=== PATIENT | female | born 1945 | race Hispanic/Latino ===

== ENCOUNTER 2022-03-03 19:54 | Emergency (ER) | payer MEDICARE, OTHER ==
[~2022-03-03] VITALS: Ht 162.6 cm; Wt 80.3 kg
[2022-03-03] MEDS ORDERED: IBUPROFEN 400 MG TAB PO ONE (20:15)
[2022-03-03] MEDS ORDERED: IBUPROFEN400 MG PO (21:09)
== END 2022-03-03 21:35 | disposition home or self-care (01) ==
LOC: FSED 20:10
DX: S92.531A Displaced fracture of distal phalanx of right lesser toe(s), initial encounter for closed fracture (principal); W22.09XA Striking against other stationary object, initial encounter; Y93.01 Activity, walking, marching and hiking; Y92.89 Other specified places as the place of occurrence of the external cause; E11.9 Type 2 diabetes mellitus without complications
CPT/HCPCS: 99283